=== PATIENT | female | born 1985 | race Two or more races ===

== ENCOUNTER 2016-10-19 11:27 | Emergency (ER) | payer OTHER ==
[~2016-10-19] VITALS: Ht 154.9 cm; Wt 52.2 kg
--- NOTE | 2016-10-19 12:44 | Emergency Room Report ---
History of Present Illness General Chief Complaint: Upper Extremity Injury Source: Patient Present Illness HPI The patient is a 31-year-old female presenting with left thumb pain which began last night after her hand was caught between the door of her car while closing. It is described as a 7/10 dull ache it does not radiate. It is worse with touch and movement. Patient denies prior injury to this area. Patient denies any numbness or tingling. The patient did notice a collection of blood under the nail. The patient denies any other injury or any other symptoms. Allergies: Coded Allergies: No Known Allergies (Unverified , 10/19/16) Patient History Past Medical History: see triage record Pertinent Family History: none Last Menstrual Period: 3-18 Now: No Reviewed Nursing Documentation: PMH: Agreed, PSxH: Agreed Nursing Documentation-PMH Past Medical History: No Stated History Review of Systems All Other Systems: negative except mentioned in HPI Physical Exam Vital Signs Date Time Temp Pulse Resp B/P Pulse Ox O2 Delivery O2 Flow Rate FiO2 10/19/16 11:44 98.4 72 16 113/74 98 Room Air Sp02 EP Interpretation: reviewed, normal General Appearance: no apparent distress, alert, GCS 15, non-toxic Head: normocephalic, atraumatic Eyes: bilateral eye PERRL, bilateral eye normal inspection Musculoskeletal: normal range of motion, tender - TTP over L distal thumb Neurologic: alert, oriented x3, responsive, motor strength/tone normal, sensory intact, speech normal Psychiatric: judgement/insight normal, memory normal, mood/affect normal, no suicidal/homicidal ideation Skin: normal color, no rash, warm/dry, well hydrated Lymphatic: no adenopathy Procedures Nail Trepanation Nail Trepanation : Consent: Verbal Nail Trepanation Location: L thumb Method of Drainage: nail cauterized Sterile Dressing Applied: Yes Finger Splint: No Patient Tolerated: Well Complications: None Medical Decision Making PA Attestation Dr. Siu is my supervising physician. Patient management was discussed with my supervising physician Diagnostic Impression: Primary Impression: Subungual hematoma of finger ER Course The patient is a 31-year-old female presenting with left thumb pain Ddx considered include but not limited to sprain/strain, fracture, contusion, subungual hematoma Physical exam: Vitals within normal limits. No apparent distress Left hand: There is tenderness over the distal left thumb. There is a subungual hematoma of the proximal nail. There was fully intact. Sensation intact to light touch. Full active range of motion. X-ray of the hand is unremarkable Patient is given Motrin for pain Electric cautery was used for trepanation. Minimal blood was expelled. The patient will be discharged home with a prescription for Motrin and will follow up with PMD. ER precautions are given Other X-Ray Diagnostic Results Other X-Ray Diagnostic Results : X-Ray Ordered: L thumb Date: Oct 19, 2016 Findings: no fractures, no soft tissue swelling Number of Views: 3 PA Scribe Text I am acting as scribe for my supervising physician. My supervising physician's interpretation of the L thumb xrays are there are no fractures, dislocations or soft tissue swelling. Last Vital Signs Date Time Temp Pulse Resp B/P Pulse Ox O2 Delivery O2 Flow Rate FiO2 10/19/16 11:44 98.4 72 16 113/74 98 Room Air Status: improved Disposition: HOME, SELF-CARE Condition: Improved Scripts Tramadol Hcl* (ULTRAM*) 50 Mg Tablet 50 MG ORAL Q6H Y for For Pain, #10 TAB 0 Refills Prov: SANNA PARDO P.A. 10/19/16 Ibuprofen* (MOTRIN*) 600 Mg Tablet 600 MG ORAL Q8H Y for For Pain, #30 TAB 0 Refills Prov: MILO PARDOY P.A. 10/19/16 Referrals: NOT CHOSEN [facility]/,REFERRING (PCP) SANNA PARDOARosario Oct 19, 2016 12:44
[2016-10-19] MEDS ORDERED: TRAMADOL HCL50 MG ORAL (13:20)
[2016-10-19] MEDS ORDERED: IBUPROFEN600 MG ORAL (13:20)
[2016-10-19 13:31] VITALS: BP 100/69
--- NOTE | 2016-10-19 15:02 | Diagnostic Imaging Report ---
Indication: PAIN Technique: 3 views left hand Comparison: none Findings: No acute fractures. No dislocations. Joint spaces are preserved. Impression: Negative
== END 2016-10-19 13:33 | disposition home or self-care (01) ==
LOC: EMR 12:31
DX: S60.112A Contusion of left thumb with damage to nail, initial encounter (principal); W23.0XXA Caught, crushed, jammed, or pinched between moving objects, initial encounter; Y92.9 Unspecified place or not applicable
CPT/HCPCS: 17000